=== PATIENT | male | born 2000 | race Caucasian/White ===

== ENCOUNTER 2020-06-22 09:38 | Outpatient (REF) | payer OTHER, SELFPAY | END 2020-06-22 09:39 | disposition home or self-care (01) | LOC: HO.HMGCLDS 09:38 | PROVIDERS: PCP Internal Medicine; Visit Provider Internal Medicine | DX: Z20.828 Contact with and (suspected) exposure to other viral communicable diseases (principal) | CPT/HCPCS: 87635 ==

== ENCOUNTER 2021-01-04 10:49 | Outpatient (REF) | payer OTHER, SELFPAY ==
[2021-01-04 13:52] LABS: MANUAL DIFF FLAG NO
[2021-01-04 13:58] LABS: Basophils Absolute Auto 0.1 X10*3/uL (0.0-0.2); Basophils Percent Auto 1.1 % (0-2); Eosinophils Absolute Auto 0.2 X10*3/uL (0.0-0.4); Eosinophils Percent Auto 3.2 % (0-4); Hematocrit 48.2 % (42-52); Imm Gran Abs Auto 0.01 X10*3/uL (0.00-0.03); Imm Gran Pct Auto 0.2 % (0.0-0.4); Lymphocytes Absolute Auto 1.5 X10*3/uL (1.2-4.9); Lymphocytes Percent Auto 24.2 % (20-40); Mean Corpuscular HGB Conc 33.2 g/dl (31.0-36.0); Mean Corpuscular Hemoglobin 30.4 pg (27.0-33.0); Mean Corpuscular Volume 91.5 fL (80-98); Mean Platelet Volume 10.3 fL (9.4-12.4); Monocytes Absolute Auto 0.5 X10*3/uL (0.1-1.2); Monocytes Percent Auto 7.6 % (2-11); Neutrophils Percent Auto 63.7 % (45-73); Platelet Count 268 X10*3/uL (160-400); Red Blood Count 5.27 X10*6/uL (4.60-5.80); Red Cell Distribution Width 12.2 % (11.0-16.0); White Blood Count 6.3 X10*3/uL (4.8-10.8)
[2021-01-04 14:20] LABS: Alanine Aminotransferase 21 U/L (0-40); Albumin Level 4.6 g/dL (3.5-5.0); Alkaline Phosphatase 96 U/L (39-117); Anion Gap 15 (12-20); Aspartate Amino Transferase 21 U/L (5-37); Bilirubin Total 1.2 mg/dL (0.0-1.0); Blood Urea Nitrogen 15 mg/dL (9-16); Calcium 9.8 mg/dL (8.4-10.2); Carbon Dioxide 29 mmol/L (22-29); Chloride 101 mmol/L (96-108); Cholesterol 217 mg/dL; Estimated Glomerular Filt Rate > 60; Glucose Fasting 95 mg/dL (60-99); HDL Cholesterol 81 mg/dL; LDL Cholesterol Calculated 121 mg/dl; Potassium 4.1 mmol/L (3.3-5.1); Sodium 141 mmol/L (135-145); Total Protein 7.3 g/dL (6.5-8.0); Triglycerides 76 mg/dL
[2021-01-04 14:37] LABS: TSH reflex Free T4 0.97 uIU/mL (0.32-4.0)
== END 2021-01-04 10:50 | disposition home or self-care (01) ==
LOC: HO.HMGCLDS 10:49
PROVIDERS: PCP Internal Medicine; Visit Provider Internal Medicine
DX: F41.1 Generalized anxiety disorder (principal); R21 Rash and other nonspecific skin eruption; L70.9 Acne, unspecified
CPT/HCPCS: 36415; 80048; 80053; 80061; 84443; 85025

== ENCOUNTER 2023-10-11 13:59 | Emergency (ER) | payer OTHER, SELFPAY ==
[2023-10-11 14:04] VITALS: BP 115/76; PULSE 122; RESP 16; TEMP 37.1; O2SAT 98; BMI 18.5
--- NOTE | 2023-10-11 14:05 | ED_ITS ---
HPI - General Adult General Chief complaint: General Medical Stated complaint: Sore throat, swollen glands Time Seen by Provider: 10/11/23 14:49 Source: patient Mode of arrival: ambulatory Limitations: no limitations History of Present Illness HPI narrative: Patient is a 23-year-old male presenting to the ED with complaint of sore throat and swelling since Sunday night. States he is spitting into a bottle, has bottle in triage with him. Only ate a cup of apple sauce yesterday and today, has been able to drink fluids. Denies fevers. Reports similar symptoms 2 weeks ago which resolved, then returned. complaint: sore throat Onset (ago): day(s) Severity: severe Quality: burning Pain Consistency: constant Relieving factors: none Exacerbating factors: eating Associated symptoms: denies other symptoms Treatments prior to arrival: none Related Data Previous Rx's Medication Instructions Recorded escitalopram oxalate 20 mg tablet 20 mg PO DAILY 90 days #90 tabs 10/04/22 lidocaine HCl 2 % mucosal solution 1 appl mucous membrane QID PRN 10/11/23 (Lidocaine Viscous) mouth pain #100 mL Allergies Allergy/AdvReac Type Severity Reaction Status Date / Time No Known Allergies Allergy Verified 10/11/23 14:04 Review of Systems 2 Review of Systems: As per HPI. Yes all other systems are reviewed and are negative Constitutional: Constitutional: Reports as per HPI PMFSH Past Medical History Medical History Acne Anxiety, generalized Surgical History History of surgery Family History Family History Father High cholesterol Substance use disorder Mother Unknown family medical history Substance use disorder Maternal Grandfather No problems noted. Maternal Grandmother Lung cancer Bone cancer Brother Substance use disorder Sister No problems noted. Social History Social History Housing: Apartment Alcohol intake: current Alcohol intake frequency: holidays/special occasions only Patient Tobacco Use Status: Never used Tobacco e-Cigarette/Vaping Use: Never Used Advance Directives: No Advance Directives Information Provided: No service: No Current occupational status: employed Cognitive needs: No Hearing needs: No Vision needs: Yes Physical Exam ED Vital Signs: Vital Signs - 24 hr 10/11/23 14:04 10/11/23 14:53 Temperature 98.7 F Pulse Rate 122 H 115 H Respiratory Rate 16 17 Blood Pressure 115/76 Pulse Oximetry 98 98 Oxygen Delivery Method Room Air BMI result Body Mass Index 18.5 Vital signs have been reviewed and appear to be correct. Blood pressure normal. Heart rate tachycardic. Respiratory rate normal. Temperature normal. Oxygen saturation normal. Const General: cooperative, healthy appearing and no acute distress Orientation/consciousness: oriented to person, oriented to place, oriented to time and patient oriented x3 Limitations: no limitations HENMT Head: Yes normocephalic and Yes atraumatic Ears: external ears normal General nose exam: Normal external nose present Face and sinus: Yes face symmetric Mouth: oropharynx normal and moist mucous membranes Throat: Yes uvula midline, Yes abnormal tonsil (3+ bilat, erythema, edema, slight exudate), No peritonsillar mass, No uvula laterally displaced and No uvular edema Eyes Pupils: Equal, round and reactive pupils present Neck Neck: Yes normal visual inspection and Yes supple Lymphatic: lymphadenopathy bilateral posterior cervical Resp Effort & Inspection: normal respiratory effort and able to speak in complete sentences Auscultation: clear to auscultation bilaterally Cardio Rate: regular rate Rhythm: regular rhythm Heart sounds: S1 normal heart sound present and S2 normal heart sound present GI Palpation (GI): Soft to palpation and nontender Auscultation: normoactive bowel sounds General: Yes no CVA tenderness Back/Spine/Pelvis Back: no CVA tenderness Skin General skin exam: elasticity normal and turgor normal Neuro General: oriented to person, oriented to place, oriented to time, patient oriented x3, moves all extremities, no focal motor deficits and CN's II-XI intact bilaterally Cranial nerves: Yes Equal, round and reactive pupils present Cognition (Neuro): normal cognition Extrem General: Yes full ROM, Yes no pedal edema and Yes no calf tenderness Psych Mental Status: mental status grossly normal Affect: normal affect Thought process: Normal thought process present Medications Administered Discontinued Medications Generic Name Dose Route Start Last Admin Trade Name Freq PRN Reason Stop Dose Admin Dexamethasone 10 mg 10/11/23 14:52 10/11/23 15:05 Dexamethasone 2 Mg Tablet PO 10/11/23 14:53 10 mg ONCE ONE Administration Medical Decision Making Medical Decision Making [facility] Narrative: Patient is a 23-year-old male presenting to the ED with complaint of sore throat and swelling since Sunday night. On exam patient is awake, A+Ox3, tachycaridc, VS otherwise WNL, afebrile, normal neurological exam without focal deficits, physical exam findings as above. Given reported symptoms and physical exam findings, initial differential includes strep pharyngitis, flu, covid, mono. Monospot positive, flu, covid, and strep all negative. Patient and mother updated on results and all questions answered. Cautioned patient about avoiding contact sports, etc. Medicated with one time dose of dexamethasone in the ED and advised patient alternate Tylenol and ibuprofen. Instructed patient to follow-up with PCP. Return precautions discussed. Patient verbalized understanding of and agreement with plan. Differential Diagnosis Differential Diagnoses: The differential diagnosis associated with the presentation includes As per MDM. Lab Data [facility] Lab Attestation statement: I reviewed the patient's lab results. As per MDM. 10/11/23 14:13 10/11/23 14:13 Labs: Lab Results 10/11/23 Range/Units 14:13 WBC 10.9 H (4.8-10.8) X10*3/uL RBC 5.19 (4.60-5.80) X10*6/uL Hgb 15.4 (14.0-18.0) g/dl Hct 45.5 (42.0-52.0) % MCV 87.7 (80.0-98.0) fL MCH 29.7 (27.0-33.0) pg MCHC 33.8 (31.0-36.0) g/dl RDW 12.9 (11.0-16.0) % Plt Count 232 (160-400) X10*3/uL MPV 9.1 L (9.4-12.4) fL Immature Gran % (Auto) 0.4 (0.0-0.4) % Neut % (Auto) 44.3 L (45-73) % Lymph % (Auto) 48.4 H (20-40) % [place] % (Auto) 6.2 (2-11) % Eos % (Auto) 0.1 (0-4) % Baso % (Auto) 0.6 (0-2) % Lymph # (Auto) 5.3 H (1.2-4.9) X10*3/uL [place] # (Auto) 0.7 (0.1-1.2) X10*3/uL Eos # (Auto) 0.0 (0.0-0.4) X10*3/uL Baso # (Auto) 0.1 (0.0-0.2) X10*3/uL Abs Immat Gran (auto) 0.04 H (0.00-0.03) X10*3/uL Absolute Neuts (auto) 4.8 (2.0-8.3) x10*3/uL Absolute Nucleated RBC 0.000 (0.0-0.012) X10*3/uL Nucleated RBC % (auto) 0.0 (0.0-0.2) /100WBC Smear Tech's Comments VERIFIED Sodium 139 (135-145) mmol/L Potassium 4.0 (3.3-5.1) mmol/L Chloride 102 (96-108) mmol/L Carbon Dioxide 26 (22-29) mmol/L Anion Gap 15 (12-20) BUN 12 (9-16) mg/dL Creatinine 0.82 (0.5-1.4) mg/dL Estim Creat Clear Calc 111.4 Estimated GFR > 60 Random Glucose 107 (60-115) mg/dL Calcium 9.6 (8.4-10.2) mg/dL Total Bilirubin 1.2 H (0.0-1.0) mg/dL AST 32 (5-37) U/L ALT 36 (0-40) U/L Alkaline Phosphatase 155 H (39-117) U/L Total Protein 8.0 (6.5-8.0) g/dL Albumin 4.2 (3.5-5.0) g/dL COVID-19 (BABS) Negative (Negative) COVID-19 Clin Com See Note Monoscreen Positive A (Negative) Influenza Type A (GEENA) Negative (Negative) Influenza Type B (GEENA) Negative (Negative) Influenza A & B Note See Note S. pyogenes GrpA GEENA Negative (Negative) External Record Review External record reviewed: Inpatient record, Office record and Outpatient record Prescription Management I considered prescription management with: Other Discharge Plan Discharge Clinical Impression: Mononucleosis Patient Disposition: Home, Self-Care Instructions: Mononucleosis (ED) Additional Instructions: You were evaluated in the emergency department today for a sore throat and you tested positive for mononucleosis. This is a virus that should resolve by itself over time. You were given a 1 time dose of steroids in the emergency department today to decrease inflammation. Your flu, Covid, and strep tests were all negative. We recommend that you take 600 mg ibuprofen or 650 mg Tylenol every 6 hours as needed for pain. If necessary, you can alternate these medications and take 1 every 3 hours. For example, at noon take Tylenol, then at 3:00 p.m. take ibuprofen, then at 6:00 p.m. take Tylenol, etc.. As discussed in the emergency department, this virus can cause an enlarged spleen. If you sustain any trauma to her abdomen and developed pain, nausea, vomiting, lightheadedness, please return for evaluation. Follow-up with your primary care provider this week. Return to the emergency department if you develop fever not improved with Tylenol or ibuprofen, increasing swelling to her throat, difficulty or inability to swallow, shortness of breath or difficulty breathing, chest pain, abdominal pain or any other concerning symptoms. Prescriptions: New lidocaine HCl [Lidocaine Viscous] 2 % solution 1 appl mucous membrane QID PRN (Reason: mouth pain) Qty: 100 0RF No Action escitalopram oxalate 20 mg tablet 20 mg PO DAILY 90 Days Qty: 90 0RF
[2023-10-11 14:36] LABS: Alanine Aminotransferase 36 U/L (0-40); Albumin Level 4.2 g/dL (3.5-5.0); Alkaline Phosphatase 155 U/L (39-117); Anion Gap 15 (12-20); Aspartate Amino Transferase 32 U/L (5-37); Basophils Absolute Auto 0.1 X10*3/uL (0.0-0.2); Basophils Percent Auto 0.6 % (0-2); Bilirubin Total 1.2 mg/dL (0.0-1.0); Blood Urea Nitrogen 12 mg/dL (9-16); Calcium 9.6 mg/dL (8.4-10.2); Carbon Dioxide 26 mmol/L (22-29); Chloride 102 mmol/L (96-108); Creatinine Clr Calc Pharmacy 111.4; Eosinophils Percent Auto 0.1 % (0-4); Estimated Glomerular Filt Rate > 60; Glucose Random 107 mg/dL (60-115); Hematocrit 45.5 % (42.0-52.0); Hemoglobin 15.4 g/dl (14.0-18.0); Imm Gran Abs Auto 0.04 X10*3/uL (0.00-0.03); Imm Gran Pct Auto 0.4 % (0.0-0.4); Lymphocytes Absolute Auto 5.3 X10*3/uL (1.2-4.9); Lymphocytes Percent Auto 48.4 % (20-40); MANUAL DIFF FLAG SCAN; Mean Corpuscular HGB Conc 33.8 g/dl (31.0-36.0); Mean Corpuscular Hemoglobin 29.7 pg (27.0-33.0); Mean Corpuscular Volume 87.7 fL (80.0-98.0); Mean Platelet Volume 9.1 fL (9.4-12.4); Monocytes Absolute Auto 0.7 X10*3/uL (0.1-1.2); Monocytes Percent Auto 6.2 % (2-11); Neutrophils Absolute Auto 4.8 x10*3/uL (2.0-8.3); Neutrophils Percent Auto 44.3 % (45-73); Platelet Count 232 X10*3/uL (160-400); Red Blood Count 5.19 X10*6/uL (4.60-5.80); Red Cell Distribution Width 12.9 % (11.0-16.0); SCAN SMEAR FLAG 1; Sodium 139 mmol/L (135-145); White Blood Count 10.9 X10*3/uL (4.8-10.8)
[2023-10-11 14:39] LABS: COVID-19 Test Negative (Negative); IDNOW Serial# 08D9AD1C; IDNOW Serial# 152EDE1D; Strep A Nucleic Acid Negative (Negative)
[2023-10-11 14:41] LABS: Monotest Positive (Negative)
[2023-10-11 14:43] LABS: IDNOW Serial# 9DB6401D; Influenza A Negative (Negative); Influenza B2 Negative (Negative)
[2023-10-11 14:47] LABS: SLIDE REVIEW VERIFIED
[2023-10-11 14:53] VITALS: PULSE 115; RESP 17; O2SAT 98
[2023-10-11] MEDS: dexAMETHasone 2 MG TABLET 10 MG PO (15:05)
== END 2023-10-11 15:30 | disposition home or self-care (01) ==
PROVIDERS: Registered Nurse Emergency; Emergency Provider Emergency Medicine; PCP Internal Medicine
DX: B27.90 Infectious mononucleosis, unspecified without complication (principal); J02.9 Acute pharyngitis, unspecified; R00.0 Tachycardia, unspecified; Z11.52 Encounter for screening for COVID-19; F41.1 Generalized anxiety disorder
CPT/HCPCS: 36415; 80053; 85025; 86308; 87502; 87635; 87651; 99282; 99283; J8540